=== PATIENT | female | born 1955 | race Hispanic/Latino ===

== ENCOUNTER 2018-03-24 14:34 | Emergency (ER) | payer SELFPAY ==
[2018-03-24 15:05] LABS: #Basophils 0.1 thou/uL (0.0-0.2); #Lymphocytes 2.4 thou/uL (1.20-3.40); #Monocytes 1.3 thou/uL (0.11-0.59); #Neutrophils 9.1 thou/uL (1.40-6.50); %Basophils 0.6 % (0.0-1.0); %Eosinophils 0.2 % (0.0-10.0); %Lymphocytes 18.5 % (21.0-51.0); %Monocytes 10.1 % (0.0-10.0); %Neutrophils 70.7 % (42.0-75.0); Hemoglobin 14.8 g/dL (12.0-16.0); Mean Corpuscular HGB CONC 35.7 g/dL (32.0-36.0); Mean Corpuscular Volume 89.5 fL (78.0-98.0); Mean Platelet Volume 6.4 fL (7.4-10.4); Platelet Count 268 thou/uL (130-400); RBC Distribution Width 12.1 % (11.5-14.5); Red Blood Cell (RBC) Count 4.64 mill/uL (4.20-5.40); White Blood Cell (WBC) Count 12.9 thou/uL (4.8-10.8)
[2018-03-24 15:19] LABS: ALT (SGPT) 51 U/L (8-55); AST (SGOT) 41 U/L (5-34); Albumin 4.2 g/dL (3.4-4.8); Alkaline Phosphatase 102 U/L (40-150); Anion Gap 15 mmol/L (10-20); BUN (Urea Nitrogen) 24 mg/dL (9.8-20.1); Bilirubin, Total 0.5 mg/dL (0.2-1.2); CK (CPK) 294 U/L (29-168); Calc. Creatinine Clearance 0 mL/min (70-130); Calcium 9.7 mg/dL (7.8-10.44); Carbon Dioxide 27 mmol/L (23-31); Chloride 95 mmol/L (98-107); Estimated GFR-MDRD 73; Globulin 4.1 g/dL (2.4-3.5); Glucose 107 mg/dL (80-115); Potassium 3.2 mmol/L (3.5-5.1); Protein, Total 8.3 g/dL (6.0-8.3); Sodium 134 mmol/L (136-145)
--- NOTE | 2018-03-24 15:20 | RAD ---
CHEST 1 VIEW: Date: 03/24/18 HISTORY: Shortness of breath. COMPARISON: None. FINDINGS: Heart size mildly enlarged. No focal confluent air space consolidation, pneumothorax, or effusion. No acute osseous abnormality. IMPRESSION: No acute intrathoracic abnormality. POS: [facility]
[2018-03-24 15:23] LABS: CKMB 5.3 ng/mL (0-6.6); Troponin I Less than 0.010 ng/mL (< 0.028)
[2018-03-24] MEDS ORDERED: Lorazepam 2 MG/ML VIAL ONE (16:48)
[2018-03-24] MEDS ORDERED: ISOVUE-370 76%-LOCM 1 ML ONE (16:53)
--- NOTE | 2018-03-24 17:44 | CT ---
CT ANGIOGRAM CHEST WITH 3D RENDERING: History: 62-year-old female with dyspnea, obesity and tachycardia. FINDINGS: There is some very minute linear stranding in the left lung base, nonspecific, possibly some mild sub segmental atelectasis versus chronic change. No overt acute pulmonary parenchymal process. No CT evidence for acute pulmonary embolism. No pleural effusion or pericardial effusion. Visualized upper abdomen is unremarkable. Possible tiny hiatal her petty. IMPRESSION: No CT evidence for acute pulmonary embolism. No evidence for other significant acute process. POS: [facility]
== END 2018-03-24 17:13 | disposition home or self-care (01) ==
LOC: ERS 14:34
DX: F41.9 Anxiety disorder, unspecified (principal); I10 Essential (primary) hypertension; Z79.899 Other long term (current) drug therapy
CPT/HCPCS: 36415; 71045; 71275; 80053; 82553; 83880; 84484; 85025; 93005; 96374; J2060

== ENCOUNTER 2018-05-14 01:30 | Emergency (ER) | payer SELFPAY ==
[2018-05-14 02:01] LABS: Bilirubin Negative (Negative); Blood, Urine Trace (Negative); Clarity CLEAR (Clear); Glucose, Urine (Dipstick) Negative (Negative); Leukocyte Negative (Negative); Nitrite Negative (Negative); Protein, Urine (Dipstick) Trace mg/dL (Neg-Trace); Specific Gravity, Urine 1.035 (1.002-1.036); Urobilinogen 0.2 mg/dL (0.2-1.0); pH, Urine 6.5 (5.0-9.0)
[2018-05-14 02:03] LABS: Bacteria/HPF None Seen HPF (None Seen); Hyaline Casts/LPF 4-6 HYALINE CAST LPF (0-3 Hyaline); Pathc Cast-AUWi Flag 1.59 (0-2.49); WBC/HPF 0-3 HPF (0-3)
[2018-05-14 02:04] LABS: #Eosinphils 0.1 thou/uL (0.0-0.7); #Lymphocytes 2.7 thou/uL (1.20-3.40); #Monocytes 0.5 thou/uL (0.11-0.59); #Neutrophils 4.2 thou/uL (1.40-6.50); %Basophils 0.6 % (0.0-1.0); %Eosinophils 1.3 % (0.0-10.0); %Lymphocytes 35.9 % (21.0-51.0); %Monocytes 6.9 % (0.0-10.0); %Neutrophils 55.3 % (42.0-75.0); Hemoglobin 13.3 g/dL (12.0-16.0); Mean Corpuscular HGB CONC 34.5 g/dL (32.0-36.0); Mean Corpuscular Hemoglobin 30.3 pg (27.0-31.0); Mean Platelet Volume 6.3 fL (7.4-10.4); Platelet Count 294 thou/uL (130-400); RBC Distribution Width 12.2 % (11.5-14.5); Red Blood Cell (RBC) Count 4.39 mill/uL (4.20-5.40); White Blood Cell (WBC) Count 7.6 thou/uL (4.8-10.8)
[2018-05-14 02:33] LABS: ALT (SGPT) 28 U/L (8-55); AST (SGOT) 25 U/L (5-34); Albumin 3.9 g/dL (3.4-4.8); Alkaline Phosphatase 96 U/L (40-150); Anion Gap 16 mmol/L (10-20); BUN (Urea Nitrogen) 18 mg/dL (9.8-20.1); Bilirubin, Total 0.3 mg/dL (0.2-1.2); Calc. Creatinine Clearance 0 mL/min (70-130); Calcium 9.5 mg/dL (7.8-10.44); Carbon Dioxide 29 mmol/L (23-31); Chloride 98 mmol/L (98-107); Estimated GFR-MDRD 69; Glucose 130 mg/dL (80-115); Lipase 21 U/L (8-78); Potassium 3.7 mmol/L (3.5-5.1); Protein, Total 7.9 g/dL (6.0-8.3); Sodium 139 mmol/L (136-145)
[2018-05-14] MEDS ORDERED: Morphine 4 MG/ML VIAL ONE (03:53)
--- NOTE | 2018-05-14 09:52 | CT ---
PRELIMINARY REPORT/[facility]/EMERGENTY AFTER-HOURS PROCEDURE CT Abdomen and Pelvis Without Contrast EXAM DATE/TIME: 05/14/2018 3:43 AM CLINICAL HISTORY: 62 years old, female; Pain; Abdominal pain; Flank; Left; Prior surgery; Patient HX: Er5; 62 yo f pres ents to ed with rash. PT reports sharp left flank pain for the past 1.5 weeks, PT hasn't seen a docto r for this issue. PT reports she noticed a rash on her chest and to her left flank region. PT reports she took aleve at home but it hasn't helped TECHNIQUE: Axial computed tomography images of the abdomen and pelvis without contrast. Coronal reformatted images were created and reviewed. COMPARISON: No relevant prior studies available. FINDINGS: Lower thorax: No acute findings. ABDOMEN: Liver: Suspected fatty infiltration of the liver. Gallbladder and bile ducts: Gallbladder appears contracted, limits evaluation. Pancreas: Normal. No ductal dilation. Spleen: Normal. No splenomegaly. Adrenals: Normal. No mass. Kidneys and ureters: No evidence of stones within the kidneys, ureters or bladder. No evidence of obs tructive uropathy or obstructive nephropathy. Stomach and bowel: Normal. No obstruction. No mucosal thickening. Appendix: Appendix - not identified, several bowel loops in lower abdomen. No pericecal inflammatory changes. PELVIS: Bladder: Unremarkable as visualized. Reproductive: Atrophic uterus. ABDOMEN and PELVIS: Intraperitoneal space: Normal. No free air. No significant fluid collection. Bones/joints: Chronic degenerative changes of the lumbar spine. Soft tissues: Ovoid 8 cm fat containing right infraumbilical hernia within anterior pelvic wall. Vasculature: Chronic atherosclerotic calcification of the vasculature. Lymph nodes: Normal. No enlarged lymph nodes. IMPRESSION: 1. No evidence of stones within the kidneys, ureters or bladder. No evidence of obstructive uropathy or obstructive nephropathy. 2. Suspected fatty infiltration of the liver. Thank you for allowing us to participate in the care of your patient. Dictated and Authenticated by: Gino Lancaster MD 05/14/2018 5:08 AM Central Time ([place] & [place]) FINAL REPORT EMERGENT AFTER HOURS NONCONTRAST CT ABDOMEN AND PELVIS: DATE: 05/14/2018. HISTORY: The patient reports sharp left flank pain for the past 1-1/2 weeks. IMPRESSION: 1. Approximately 11 mm exophytic increased density lesion at the inferior pole right kidney which ca nnot be further characterized on this nonenhanced exam and due to small size but may represent a hype rdense Bosniak type II renal cystic lesion. 2. No renal or ureteral calculi are seen bilaterally. 3. Fatty infiltration of the liver with areas of focal fatty sparing at the posterior left hepatic l obe. 4. Scattered colonic diverticula. 5. Fat-containing umbilical hernia. 6. Vascular calcifications. 7. Findings are in agreement with the preliminary report by [facility]. POS: [facility]
== END 2018-05-14 06:15 | disposition home or self-care (01) ==
LOC: ERS 01:30
DX: B02.9 Zoster without complications (principal); E78.5 Hyperlipidemia, unspecified; I10 Essential (primary) hypertension; F32.9 Major depressive disorder, single episode, unspecified
CPT/HCPCS: 36415; 74176; 80053; 81003; 81015; 83690; 85025; 96372; J2270

== ENCOUNTER 2018-12-03 13:00 | Outpatient (CLI) | payer MEDICARE, MEDICAID ==
--- NOTE | 2018-12-03 13:27 | RAD ---
RADIOGRAPH CHEST 2 VIEWS: 12/03/18 HISTORY: 63-year-old female with dyspnea. FINDINGS: The thoracic aorta is tortuous and ectatic. There is no evidence of air space density, pneumothorax, or pulmonary edema. There is no cardiomegaly or pleural effusion. IMPRESSION: 1) No acute cardiopulmonary findings. 2) Ectasia of thoracic aorta. jn [] POS: [facility]
== END 2018-12-03 13:01 | disposition home or self-care (01) ==
LOC: RAD 13:00
PROVIDERS: ATTEND Internal Medicine Pulmonary Disease
DX: R06.00 Dyspnea, unspecified (principal); I77.810 Thoracic aortic ectasia
CPT/HCPCS: 71046

== ENCOUNTER 2018-12-20 19:30 | Outpatient (CLI) | payer MEDICARE, MEDICAID | END 2018-12-20 19:31 | disposition home or self-care (01) | LOC: SLEEPLAB 19:30 | PROVIDERS: ATTEND Internal Medicine Pulmonary Disease | DX: G47.33 Obstructive sleep apnea (adult) (pediatric) (principal); R53.83 Other fatigue; K21.9 Gastro-esophageal reflux disease without esophagitis; E66.9 Obesity, unspecified; R06.83 Snoring | CPT/HCPCS: 95811 ==

== ENCOUNTER 2019-01-23 12:00 | Outpatient (CLI) | payer MEDICARE, MEDICAID ==
--- NOTE | 2019-01-24 16:51 | MMO ---
Bilateral MAMMO Bilat Screen [facility]. CLINICAL HISTORY: Patient is 63 years old and is seen for screening. The patient has no family history of breast cancer. The patient has no personal history of cancer. VIEWS: The views performed were: bilateral craniocaudal with tomosynthesis and bilateral mediolateral oblique with tomosynthesis. FILMS COMPARED: The present examination has been compared to a prior imaging study performed at [place], [place] on 08/29/2017. This study has been interpreted with the assistance of computer-aided detection. MAMMOGRAM FINDINGS: There are scattered fibroglandular densities. There are stable benign appearing calcifications seen in the left breast. There are no suspicious masses, calcifications or areas of architectural distortion. There are no suspicious masses, suspicious calcifications, or new areas of architectural distortion. IMPRESSION: THERE IS NO MAMMOGRAPHIC EVIDENCE OF MALIGNANCY. A ROUTINE FOLLOW-UP MAMMOGRAM IN 1 YEAR IS RECOMMENDED. THE RESULTS OF THIS EXAM WERE SENT TO THE PATIENT. ACR BI-RADS Category 2 - Benign finding MAMMOGRAPHY NOTE: 1. A negative mammogram report should not delay a biopsy if a dominant of clinically suspicious mass is present. 2. Approximately 10% to 15% of breast cancers are not detected by mammography. 3. Adenosis and dense breasts may obscure an underlying neoplasm. Reported by: RAHEL SHEEHAN MD Electonically Signed: [id number]
== END 2019-01-23 12:01 | disposition home or self-care (01) ==
LOC: BICMAMMO 12:00
PROVIDERS: ATTEND Family Medicine
DX: Z12.31 Encounter for screening mammogram for malignant neoplasm of breast (principal)
CPT/HCPCS: 77063; 77067

== ENCOUNTER 2019-02-04 15:02 | Emergency (ER) | payer MEDICARE, MEDICAID ==
--- NOTE | 2019-02-04 16:14 | RAD ---
3 views of the right shoulder: 02/04/2019 COMPARISON: None HISTORY: Right arm pain, right shoulder pain, radiculopathy FINDINGS: There is joint space narrowing involving the acromioclavicular interspace. There is no wide evelio of the coracoclavicular interspace. No acute fracture or evidence of dislocation is seen. Incompletely imaged cervical spine demonstrates facet hypertrophy on the right at C4-5 and C5-6. IMPRESSION: Degenerative changes as detailed above.
== END 2019-02-04 16:48 | disposition home or self-care (01) ==
LOC: ERS 15:02
DX: M25.511 Pain in right shoulder (principal); E78.5 Hyperlipidemia, unspecified; E78.00 Pure hypercholesterolemia, unspecified; I10 Essential (primary) hypertension; F32.9 Major depressive disorder, single episode, unspecified; Z79.891 Long term (current) use of opiate analgesic; Z79.899 Other long term (current) drug therapy
CPT/HCPCS: 93005

== ENCOUNTER 2020-03-22 12:28 | Outpatient (CLI) | payer MEDICARE, MEDICAID ==
--- NOTE | 2020-03-22 14:10 | MMO ---
Bilateral MAMMO Bilat Screen [facility]. CLINICAL HISTORY: Patient is 64 years old and is seen for screening. The patient has no family history of breast cancer. The patient has no personal history of cancer. VIEWS: The views performed were: bilateral mediolateral oblique with tomosynthesis; bilateral craniocaudal with tomosynthesis; bilateral mediolateral oblique; and left craniocaudal. FILMS COMPARED: The present examination has been compared to prior imaging studies performed at [facility] on 01/23/2019, and at [place], [place] on 08/29/2017. This study has been interpreted with the assistance of computer-aided detection. MAMMOGRAM FINDINGS: There are scattered fibroglandular densities. There is a stable nodule seen in the upper-outer region of the left breast. There are no suspicious masses, suspicious calcifications, or new areas of architectural distortion. IMPRESSION: THERE IS NO MAMMOGRAPHIC EVIDENCE OF MALIGNANCY. A ROUTINE FOLLOW-UP MAMMOGRAM IN 1 YEAR IS RECOMMENDED. THE RESULTS OF THIS EXAM WERE SENT TO THE PATIENT. ACR BI-RADS Category 2 - Benign finding MAMMOGRAPHY NOTE: 1. A negative mammogram report should not delay a biopsy if a dominant of clinically suspicious mass is present. 2. Approximately 10% to 15% of breast cancers are not detected by mammography. 3. Adenosis and dense breasts may obscure an underlying neoplasm. Reported by: ROMAN SALVADOR MD Electonically Signed: [id number]
== END 2020-03-22 12:29 | disposition home or self-care (01) ==
LOC: BICMAMMO 12:28
PROVIDERS: ATTEND Family Medicine
DX: Z12.31 Encounter for screening mammogram for malignant neoplasm of breast (principal)
CPT/HCPCS: 77063; 77067

== ENCOUNTER 2020-06-07 08:53 | Emergency (ER) | payer MEDICARE, MEDICAID ==
[2020-06-07] MEDS ORDERED: Ondansetron PF 4 MG/2 ML Vial ONE (09:20)
[2020-06-07] MEDS ORDERED: Ketorolac Tromethamine 30 MG/ML VIAL ONE (09:20)
[2020-06-07] MEDS ORDERED: Acetaminophen 500 MG TAB ONE (09:20)
--- NOTE | 2020-06-07 09:58 | RAD ---
CHEST 1 VIEW: Date: 06/07/2020 HISTORY: Weakness and cough for 1 week. COMPARISON: 12/03/2018. FINDINGS: Patchy bilateral interstitial, alveolar, and ground-glass opacity changes, primarily in the mid lung zone, somewhat more peripherally oriented. This appearance certainly is consistent with that of bilat eral COVID pneumonia. IMPRESSION: Evidence for bilateral COVID pneumonia. POS: [facility]
[2020-06-07 10:18] LABS: #Basophils 0.1 thou/uL (0.0-0.2); #Lymphocytes 1.4 thou/uL (1.20-3.40); #Monocytes 0.3 thou/uL (0.11-0.59); #Neutrophils 3.5 thou/uL (1.40-6.50); %Basophils 1.3 % (0.0-1.0); %Eosinophils 0.1 % (0.0-10.0); %Monocytes 6.4 % (0.0-10.0); %Neutrophils 66.1 % (42.0-75.0); Hemoglobin 14.6 g/dL (12.0-16.0); Mean Corpuscular HGB CONC 32.1 g/dL (32.0-36.0); Mean Corpuscular Volume 87.1 fL (78.0-98.0); Platelet Count 177 thou/uL (130-400); RBC Distribution Width 12.5 % (11.5-14.5); Red Blood Cell (RBC) Count 5.22 mill/uL (4.20-5.40); White Blood Cell (WBC) Count 5.3 thou/uL (4.8-10.8)
[2020-06-07 10:27] LABS: ALT (SGPT) 28 U/L (8-55); AST (SGOT) 49 U/L (5-34); Albumin 3.9 g/dL (3.4-4.8); Alkaline Phosphatase 67 U/L (40-110); Anion Gap 16 mmol/L (10-20); BUN (Urea Nitrogen) 32 mg/dL (9.8-20.1); Bilirubin, Total 0.5 mg/dL (0.2-1.2); Calc. Creatinine Clearance 0 mL/min (70-130); Calcium 8.5 mg/dL (7.8-10.44); Carbon Dioxide 29 mmol/L (23-31); Chloride 98 mmol/L (98-107); Glucose 106 mg/dL (80-115); Potassium 3.3 mmol/L (3.5-5.1); Protein, Total 7.9 g/dL (5.8-8.1); Sodium 140 mmol/L (136-145)
[2020-06-07 11:41] LABS: Bilirubin Negative (Negative); Blood, Urine Negative (Negative); Clarity Turbid (Clear); Glucose, Urine (Dipstick) Normal (Negative); Ketone, Urine Negative (Negative); Leukocyte Negative Leu/uL (Negative); Nitrite Negative (Negative); Protein, Urine (Dipstick) 70 mg/dL (Neg-Trace); RBC/HPF 0-3 HPF (0-3); Specific Gravity, Urine 1.028 (1.002-1.036); Urobilinogen Normal mg/dL (Less than 2); pH, Urine 5.5 (5.0-9.0)
[2020-06-07 11:42] LABS: Bacteria/HPF 1+ HPF (None Seen)
[2020-06-07 22:20] LABS: SARS-CoV-2 PCR by NAA DETECTED (NotDetected)
== END 2020-06-07 13:00 | disposition home or self-care (01) ==
LOC: ERS 08:53
DX: U07.1 COVID-19 (principal); J12.82 Pneumonia due to coronavirus disease 2019; E86.0 Dehydration; E78.5 Hyperlipidemia, unspecified; E78.00 Pure hypercholesterolemia, unspecified; I10 Essential (primary) hypertension; Z79.899 Other long term (current) drug therapy
CPT/HCPCS: 71045; 80053; 81003; 81015; 84484; 85025; 87635; 93005; J1885; J2405; U0003; U0005

== ENCOUNTER 2020-06-09 11:07 | Inpatient (IN) | payer MEDICARE, MEDICAID ==
[~2020-06-09 11:07] MED LIST: Iopamidol-370 76% 500 ML 1 ML ONE
[2020-06-09 11:51] LABS: #Lymphocytes 0.8 thou/uL (1.20-3.40); #Monocytes 0.3 thou/uL (0.11-0.59); #Neutrophils 3.9 thou/uL (1.40-6.50); %Basophils 0.8 % (0.0-1.0); %Lymphocytes 16.7 % (21.0-51.0); %Monocytes 5.4 % (0.0-10.0); Hemoglobin 13.9 g/dL (12.0-16.0); Mean Corpuscular HGB CONC 33.6 g/dL (32.0-36.0); Mean Corpuscular Hemoglobin 29.3 pg (27.0-31.0); Mean Corpuscular Volume 87.3 fL (78.0-98.0); Mean Platelet Volume 7.2 fL (7.4-10.4); Platelet Count 162 thou/uL (130-400); RBC Distribution Width 12.5 % (11.5-14.5); Red Blood Cell (RBC) Count 4.75 mill/uL (4.20-5.40)
[2020-06-09] MEDS ORDERED: Azithromycin 500 MG VIAL ONE (11:52)
[2020-06-09] MEDS ORDERED: Dexamethasone 10 MG/ML VIAL ONE (11:52)
[2020-06-09] MEDS ORDERED: cefTRIAXone\\ROCEPHIN 1 GM VIAL ONE (11:52)
[2020-06-09] MEDS ORDERED: Albuterol 200 PUFF (6.7GM INHALER) ONE (11:52)
[2020-06-09] MEDS ORDERED: Ketorolac Tromethamine 30 MG/ML VIAL ONE (11:57)
--- NOTE | 2020-06-09 12:28 | RAD ---
PORTABLE CHEST: Date: 06/09/2020 PROVIDED CLINICAL HISTORY: Pneumonia. FINDINGS: Comparison with 06/07/2020. Evaluation is limited by patient body habitus. The cardiac silhouette remains enlarged. Extensive bilateral air space and interstitial opacities are redemonstrated, appearing worsened in the right upper lung zone. Left pleural fluid cannot be exclud ed. There is no evidence for pneumothorax. IMPRESSION: Worsened air space disease. POS: [facility]
[2020-06-09 12:37] LABS: Albumin 3.4 g/dL (3.4-4.8)
[2020-06-09 12:39] LABS: Calcium 8.1 mg/dL (7.8-10.44); Chloride 98 mmol/L (98-107); Potassium 3.6 mmol/L (3.5-5.1); Sodium 136 mmol/L (136-145)
[2020-06-09 12:40] LABS: Globulin 4.2 g/dL (2.4-3.5); Glucose 101 mg/dL (80-115); Protein, Total 7.6 g/dL (5.8-8.1)
[2020-06-09 12:41] LABS: Anion Gap 16 mmol/L (10-20); Carbon Dioxide 26 mmol/L (23-31)
[2020-06-09 12:42] LABS: Bilirubin, Total 0.5 mg/dL (0.2-1.2)
[2020-06-09 12:43] LABS: Alkaline Phosphatase 59 U/L (40-110); Calc. Creatinine Clearance 0 mL/min (70-130)
[2020-06-09 12:44] LABS: BUN (Urea Nitrogen) 24 mg/dL (9.8-20.1)
[2020-06-09 12:45] LABS: AST (SGOT) 49 U/L (5-34)
[2020-06-09 12:46] LABS: ALT (SGPT) 26 U/L (8-55)
[2020-06-09 13:08] LABS: PTT 29.6 sec (22.9-36.1); Prothrombin Time 13.7 sec (12.0-14.7)
--- NOTE | 2020-06-09 13:12 | CT ---
Exam: CT angiogram of the chest HISTORY: Dyspnea. COMPARISON: 03/24/2018 TECHNIQUE: CT angiogram of the chest is performed in the axial plane. Three-dimensional reformatted i mages are submitted for interpretation FINDINGS: Mediastinum: No mass, lymphadenopathy or hematoma. HEART: Normal size. No significant pericardial fluid. Aorta: No aneurysm or dissection Upper solid abdominal viscera: No abnormality enhancement. Trachea and central bronchi: Patent Pleural spaces: No effusion Lung parenchyma: Predominantly peripheral groundglass opacities, suspicious for COVID 19 pneumonia Pneumothorax: None Osseous structures: No lytic or blastic lesions Pulmonary arteries:Limited evaluation pulmonary arterial system due to timing of contrast bolus. Adeq uate contrast opacification of central pulmonary arteries. No filling defect. Evaluation the remainder the pulmonary arterial system is limited. IMPRESSION: 1. Limited evaluation for metal system due to timing of contrast bolus. No obvious central pulmonary embolism. 2. Peripheral groundglass opacities, consistent with COVID 19 pneumonia. Correlate for patient's CODE STATUS
[2020-06-09] MEDS ORDERED: Ondansetron ODT 4 MG TAB PO PRN (14:14)
[2020-06-09] MEDS ORDERED: Calcium Carbonate 500 MG ChewTAB PO PRN (14:14)
[2020-06-09] MEDS ORDERED: Acetaminophen 650 MG Suppository PR PRN (14:14)
[2020-06-09] MEDS ORDERED: Acetaminophen 325 MG TAB PO PRN (14:14)
[2020-06-09] MEDS ORDERED: Ondansetron PF 4 MG/2 ML Vial IVP PRN (14:14)
--- NOTE | 2020-06-09 14:22 | PDOC.HHP ---
Hospitalist HPI dyspnea History of Present Illness: Case of an 64y/o female with a pmhx of hld htn who uses 02 at home 2L, patient does not know why she is on home 02, she denies any heart or lung disease, she is morbidly obese, could be related to obesity hypoventilation syndrome who come to hospital due to complaining of worsening shortness of breath and extreme fatigue. Patient was seen in this ER 2 days ago with similar symptoms. She was tested for Covid at that time. Those results are positive. Patient symptoms started initially about 10 days ago. She did see her primary care provider who placed her on a Medrol Dosepak. She completed that as prescribed. She refers some diarrhea denies abdominal pain. EMS reported that the patient was febrile at 102 F. She did receive a gram of Tylenol prior to arrival in the ER. Oxygen saturation was 86% on room air for EMS. She did improve to 90% on 3 L per nasal cannula. Patient says she has been too weak to get up and do anything for herself. She denies chest pain or palpitations. Allergies/Adverse Reactions: Allergy/AdvReac Type Severity Reaction Status Date / Time No Known Allergies Allergy Unverified 06/09/20 14:18 Home Medications: Medication Instructions Recorded Confirmed Type Atorvastatin Calcium [Lipitor] 20 mg PO DAILY 06/09/20 06/09/20 History Celecoxib [Celebrex] 200 mg PO BID 06/09/20 06/09/20 History Ergocalciferol (Vitamin D2) 50,000 unit PO ASDIR 06/09/20 06/09/20 History [Vitamin D2] Fluticasone/Vilanterol [Breo 1 each IH DAILY 06/09/20 06/09/20 History Ellipta 200-25 Mcg INH] Hydrochlorothiazide 25 mg PO DAILY 06/09/20 06/09/20 History Ondansetron [Ondansetron ODT] 4 mg PO Q6HR PRN 06/09/20 06/09/20 History methylPREDNISolone [Medrol] 4 mg PO ASDIR 06/09/20 06/09/20 History Past History: PMHx: as above PSHx: none FHx: non contributory Social: denies alcohol tabacco or any other drug Hospitalist HPI ROS All other systems reviewed; all pertinent +/- noted in HPI/Subj Hospitalist Exam General Appearance: ill appearing General - other findings: obese Eye: PERRL, anicteric sclera ENT: normocephalic atraumatic, no oropharyngeal lesions Neck: supple, symmetric, no JVD Heart: RRR, no murmur, no gallops Respiratory: CTAB, no wheezes, no rales Gastrointestinal: soft, non-tender, non-distended Extremities: no cyanosis, no clubbing, no edema Skin: normal turgor, no lesions, no rashes Neurological: cranial nerve grossly intact, normal sensation to touch, no weakness Musculoskeletal: normal tone, normal strength, no muscle wasting Psychiatric: normal affect, normal behavior, A&O x 3 Hospitalist Results Result Diagrams: 06/09/20 11:35 06/09/20 11:35 Lab results: Laboratory Last Values WBC 5.0 thou/uL (4.8-10.8) 06/09/20 11:35 RBC 4.75 mill/uL (4.20-5.40) 06/09/20 11:35 Hgb 13.9 g/dL (12.0-16.0) 06/09/20 11:35 Hct 41.5 % (36.0-47.0) 06/09/20 11:35 MCV 87.3 fL (78.0-98.0) 06/09/20 11:35 MCH 29.3 pg (27.0-31.0) 06/09/20 11:35 MCHC 33.6 g/dL (32.0-36.0) 06/09/20 11:35 RDW 12.5 % (11.5-14.5) 06/09/20 11:35 Plt Count 162 thou/uL (130-400) 06/09/20 11:35 MPV 7.2 fL (7.4-10.4) L 06/09/20 11:35 Neutrophils % 77.0 % (42.0-75.0) H 06/09/20 11:35 Lymphocytes % 16.7 % (21.0-51.0) L 06/09/20 11:35 Monocytes % 5.4 % (0.0-10.0) 06/09/20 11:35 Eosinophils % 0.0 % (0.0-10.0) 06/09/20 11:35 Basophils % 0.8 % (0.0-1.0) 06/09/20 11:35 Neutrophils # 3.9 thou/uL (1.40-6.50) 06/09/20 11:35 Lymphocytes # 0.8 thou/uL (1.20-3.40) L 06/09/20 11:35 Monocytes # 0.3 thou/uL (0.11-0.59) 06/09/20 11:35 Eosinophils # 0.0 thou/uL (0.0-0.7) 06/09/20 11:35 Basophils # 0.0 thou/uL (0.0-0.2) 06/09/20 11:35 PT 13.7 sec (12.0-14.7) 06/09/20 12:49 INR 1.0 06/09/20 12:49 APTT 29.6 sec (22.9-36.1) 06/09/20 12:49 Sodium 136 mmol/L (136-145) 06/09/20 11:35 Potassium 3.6 mmol/L (3.5-5.1) 06/09/20 11:35 Chloride 98 mmol/L (98-107) 06/09/20 11:35 Carbon Dioxide 26 mmol/L (23-31) 06/09/20 11:35 Anion Gap 16 mmol/L (10-20) 06/09/20 11:35 BUN 24 mg/dL (9.8-20.1) H 06/09/20 11:35 Creatinine 0.78 mg/dL (0.6-1.1) 06/09/20 11:35 Estimated GFR (MDRD) 74 06/09/20 11:35 Glucose 101 mg/dL (80-115) 06/09/20 11:35 Lactic Acid 1.4 mmol/L (0.5-2.2) 06/09/20 11:35 Calcium 8.1 mg/dL (7.8-10.44) 06/09/20 11:35 Total Bilirubin 0.5 mg/dL (0.2-1.2) 06/09/20 11:35 AST 49 U/L (5-34) H 06/09/20 11:35 ALT 26 U/L (8-55) 06/09/20 11:35 Alkaline Phosphatase 59 U/L (40-110) 06/09/20 11:35 Troponin I 0.020 ng/mL (< 0.028) 06/09/20 11:35 B-Natriuretic Peptide 15.6 pg/mL (0-100) 06/09/20 12:49 Serum Total Protein 7.6 g/dL (5.8-8.1) 06/09/20 11:35 Albumin 3.4 g/dL (3.4-4.8) 06/09/20 11:35 Globulin 4.2 g/dL (2.4-3.5) H 06/09/20 11:35 Albumin/Globulin Ratio 0.8 g/dL (1.2-2.2) L 06/09/20 11:35 Hospitalist H&P A/P (1) Pneumonia due to COVID-19 virus Code(s): U07.1 - COVID-19; J12.82 - PNEUMONIA DUE TO CORONAVIRUS DISEASE 2019 Status: Acute (2) Respiratory failure with hypoxia Code(s): J96.91 - RESPIRATORY FAILURE, UNSPECIFIED WITH HYPOXIA Status: Acute (3) HTN (hypertension) Code(s): I10 - ESSENTIAL (PRIMARY) HYPERTENSION Status: Acute (4) HLD (hyperlipidemia) Code(s): E78.5 - HYPERLIPIDEMIA, UNSPECIFIED Status: Acute Plan: Case of an 64y/o female with the stated pmhx who present with worsening covid 19 symptoms covid 19 pneumonia - positive test - cta consistent with covid 19 pneumonia - will start decadron ivd - zinc + vit c d - ivfs for 24 hrs - isolation protocol resp failure w hypoxia - secondary to above - o2 supplementation - wean as tolerated htn - will hold for now, borderline hypotensive - continue home meds when more stable hld - continue home meds
[2020-06-09 15:34] VITALS: BMI 51.7
[2020-06-09] MEDS: Sodium Chloride 0.9% 1,000 ML IV SCH (15:46)
[2020-06-09] MEDS: Guaifenesin DM 100-10/5 ML UDCUP PO PRN (20:43)
[2020-06-10] MEDS: Sodium Chloride 0.9% 1,000 ML IV SCH (05:46)
[2020-06-10 07:19] LABS: ALT (SGPT) 23 U/L (8-55); AST (SGOT) 36 U/L (5-34); Albumin 3.4 g/dL (3.4-4.8); Alkaline Phosphatase 55 U/L (40-110); Anion Gap 14 mmol/L (10-20); BUN (Urea Nitrogen) 21 mg/dL (9.8-20.1); Bilirubin, Total 0.4 mg/dL (0.2-1.2); CRP (Inflammatory) 6.44 mg/dL (= or < 0.5); Calc. Creatinine Clearance 123 mL/min (70-130); Calcium 8.1 mg/dL (7.8-10.44); Carbon Dioxide 30 mmol/L (23-31); Chloride 103 mmol/L (98-107); Globulin 3.8 g/dL (2.4-3.5); Glucose 130 mg/dL (80-115); Potassium 3.5 mmol/L (3.5-5.1); Protein, Total 7.2 g/dL (5.8-8.1); Sodium 143 mmol/L (136-145)
[2020-06-10 08:17] LABS: Band 30 % (5-11); Hemoglobin 13.5 g/dL (12.0-16.0); Lymphocytes 12 % (21-51); MDiff Complete? YES; Mean Corpuscular HGB CONC 33.4 g/dL (32.0-36.0); Mean Corpuscular Volume 89.9 fL (78.0-98.0); Mean Platelet Volume 7.4 fL (7.4-10.4); Monocytes 6 % (0-10); Neutrophil 50 % (42-75); Platelet Count 165 thou/uL (130-400); RBC Distribution Width 12.5 % (11.5-14.5); RBC Morphology Normal; Reactive Lymphocytes 2 % (0-10); White Blood Cell (WBC) Count 3.7 thou/uL (4.8-10.8)
[2020-06-10] MEDS: Enoxaparin Sodium 40 MG/0.4 ML SYRINGE SC SCH (09:31)
[2020-06-10] MEDS: Ascorbic Acid 500 mg Chewable Tablet PO SCH (09:31)
[2020-06-10] MEDS: Cholecalciferol (Vitamin D3) 400 UNITS TAB PO SCH (09:31)
[2020-06-10] MEDS: Zinc Sulfate 220 MG CAP PO SCH (09:31)
[2020-06-10] MEDS: Dexamethasone 6 MG in Sodium Chloride 0.9% 50 ML IVPB SCH (11:13)
[2020-06-10] MEDS: guaiFENesin/Codeine 200 mg/20 mg 10 ml Cup PO PRN ×2 (11:14→18:16)
--- NOTE | 2020-06-10 15:06 | PDOC.HOSPP ---
- Subjective Encounter Date: 06/10/20 Encounter Time: 15:04 Subjective: Complain of generalized weakness and shortness of breath - Objective Vital Signs & Weight: Vital Signs (12 hours) Temp Pulse Resp BP BP Pulse Ox 06/10/20 11:15 98.4 F 84 24 H 117/73 98 06/10/20 09:45 98 06/10/20 08:00 98.9 F 73 20 115/72 93 L 06/10/20 07:49 98.0 F 70 20 99/68 94 L 06/10/20 05:21 97.9 F 69 20 104/69 94 L Weight Weight 239 lb I&O: 06/09/20 06/10/20 06/11/20 06:59 06:59 06:59 Intake Total 700 Balance 700 Result Diagrams: 06/10/20 06:33 06/10/20 06:33 Hospitalist ROS - Review of Systems Constitutional: denies: fever, chills, sweats, weakness, malaise, other Eyes: denies: pain, vision change, conjunctivae inflammation, eyelid inflammation, redness, other ENT: denies: ear pain, ear discharge, nose pain, nose discharge, nose congestion, mouth pain, mouth swelling, throat pain, throat swelling, other Respiratory: denies: cough, dry, shortness of breath, hemoptysis, SOB with excertion, pleuritic pain, sputum, wheezing, other Cardiovascular: denies: chest pain, palpitations, orthopnea, paroxysmal noc. dys pnea, edema, light headedness, other Gastrointestinal: denies: nausea, vomiting, abdominal pain, diarrhea, constipation, melena, hematochezia, other Musculoskeletal: denies: neck pain, shoulder pain, arm pain, back pain, hand pain, leg pain, foot pain, other Neurological: denies: weakness, numbness, incoordination, change in speech, confusion, seizures, other - Medication Medications: Active Medications Generic Name Dose Route Start Last Admin Trade Name Freq PRN Reason Stop Dose Admin Ascorbic Acid 1,000 mg 06/10/20 09:00 06/10/20 09:31 Ascorbic Acid 500 Mg Chewable Tablet PO 1,000 mg DAILY GINNY Administration Cholecalciferol 400 units 06/10/20 09:00 06/10/20 09:31 Cholecalciferol (Vitamin D3) 400 Units Tab PO 400 units DAILY GINNY Administration Enoxaparin Sodium 40 mg 06/10/20 09:00 06/10/20 09:31 Enoxaparin Sodium 40 Mg/0.4 Ml Syringe SC 40 mg 0900 GINNY Administration Guaifenesin/Codeine Phosphate 10 ml 06/10/20 10:34 06/10/20 11:14 Guaifenesin/Codeine 200 Mg/20 Mg 10 Ml Cup PO 10 ml Q6H PRN Administration Cough Guaifenesin/Dextromethorphan 15 ml 06/09/20 14:14 06/09/20 20:43 Guaifenesin Dm 100-10/5 Ml Udcup PO 15 ml Q4H PRN Administration Cough Dexamethasone 6 mg/ Sodium 50.6 mls @ 100 mls/hr 06/10/20 09:00 06/10/20 11:13 Chloride IVPB 50.6 mls DAILY GINNY Administration Zinc Sulfate 220 mg 06/10/20 09:00 06/10/20 09:31 Zinc Sulfate 220 Mg Cap PO 220 mg DAILY GINNY Administration Hospitalist Exam Vitals: Vital Signs (12 hours) Temp Pulse Resp BP BP Pulse Ox 06/10/20 11:15 98.4 F 84 24 H 117/73 98 06/10/20 09:45 98 06/10/20 08:00 98.9 F 73 20 115/72 93 L 06/10/20 07:49 98.0 F 70 20 99/68 94 L 06/10/20 05:21 97.9 F 69 20 104/69 94 L Weight Weight 239 lb General Appearance: NAD Eye: PERRL ENT: normocephalic atraumatic Neck: supple Respiratory: tachypneic Gastrointestinal: soft, non-tender, non-distended Extremities: no cyanosis, no clubbing Neurological: cranial nerve grossly intact Hosp A/P - Plan 1. Acute hypoxic respiratory failure secondary to Covid pneumonia -On dexamethasone, vitamin C, D -Sats currently at 95% on 2 L 2. Morbid obesity 3. History of essential hypertension -SBP currently low in the 90s to low 100s so holding outpatient BP meds 4. DVT prophylaxis -Subcu Lovenox
[2020-06-10] MEDS: Guaifenesin DM 100-10/5 ML UDCUP PO PRN (20:19)
[2020-06-11] MEDS: Ascorbic Acid 500 mg Chewable Tablet PO SCH (09:44)
[2020-06-11] MEDS: Cholecalciferol (Vitamin D3) 400 UNITS TAB PO SCH (09:45)
[2020-06-11] MEDS: guaiFENesin/Codeine 200 mg/20 mg 10 ml Cup PO PRN (09:45)
[2020-06-11] MEDS: Enoxaparin Sodium 40 MG/0.4 ML SYRINGE SC SCH (09:45)
[2020-06-11] MEDS: Zinc Sulfate 220 MG CAP PO SCH (09:45)
[2020-06-11] MEDS: Dexamethasone 6 MG in Sodium Chloride 0.9% 50 ML IVPB SCH (09:45)
--- NOTE | 2020-06-11 11:53 | PDOC.HOSPP ---
- Subjective Encounter Date: 06/11/20 Encounter Time: 11:52 Subjective: Complaints of generalized weakness - Objective Vital Signs & Weight: Vital Signs (12 hours) Temp Pulse Resp BP BP Pulse Ox 06/11/20 07:59 98.0 F 69 18 110/61 97 06/11/20 05:07 97.9 F 68 18 93/62 92 L 06/11/20 00:36 98.1 F 69 18 107/63 95 Weight Weight 239 lb I&O: 06/10/20 06/11/20 06/12/20 06:59 06:59 06:59 Intake Total 700 1450 Balance 700 1450 Result Diagrams: 06/10/20 06:33 06/10/20 06:33 Hospitalist ROS - Review of Systems Constitutional: reports: fever. denies: chills, sweats, weakness, malaise, other ENT: denies: ear pain, ear discharge, nose pain, nose discharge, nose congestion, mouth pain, mouth swelling, throat pain, throat swelling, other Respiratory: reports: shortness of breath Cardiovascular: denies: chest pain, palpitations, orthopnea, paroxysmal noc. dyspnea, edema, light headedness, other Gastrointestinal: denies: nausea, vomiting, abdominal pain, diarrhea, constipation, melena, hematochezia, other Musculoskeletal: denies: neck pain, shoulder pain, arm pain, back pain, hand pain, leg pain, foot pain, other Skin: denies: rash, lesions, consuelo, bruising, other - Medication Medications: Active Medications Generic Name Dose Route Start Last Admin Trade Name Freq PRN Reason Stop Dose Admin Acetaminophen 650 mg 06/09/20 14:14 06/10/20 20:19 Acetaminophen 325 Mg Tab PO 650 mg Q4H PRN Administration Headache/Fever/Mild Pain (1-3) Ascorbic Acid 1,000 mg 06/10/20 09:00 06/11/20 09:44 Ascorbic Acid 500 Mg Chewable Tablet PO 1,000 mg DAILY GINNY Administration Cholecalciferol 400 units 06/10/20 09:00 06/11/20 09:45 Cholecalciferol (Vitamin D3) 400 Units Tab PO 400 units DAILY GINNY Administration Enoxaparin Sodium 40 mg 06/10/20 09:00 06/11/20 09:45 Enoxaparin Sodium 40 Mg/0.4 Ml Syringe SC 40 mg 0900 GINNY Administration Guaifenesin/Codeine Phosphate 10 ml 06/10/20 10:34 06/11/20 09:45 Guaifenesin/Codeine 200 Mg/20 Mg 10 Ml Cup PO 10 ml Q6H PRN Administration Cough Guaifenesin/Dextromethorphan 15 ml 06/09/20 14:14 06/10/20 20:19 Guaifenesin Dm 100-10/5 Ml Udcup PO 15 ml Q4H PRN Administration Cough Dexamethasone 6 mg/ Sodium 50.6 mls @ 100 mls/hr 06/10/20 09:00 06/11/20 09:45 Chloride IVPB 50.6 mls DAILY GINNY Administration Zinc Sulfate 220 mg 06/10/20 09:00 06/11/20 09:45 Zinc Sulfate 220 Mg Cap PO 220 mg DAILY GINNY Administration Hospitalist Exam Vitals: Vital Signs (12 hours) Temp Pulse Resp BP BP Pulse Ox 06/11/20 07:59 98.0 F 69 18 110/61 97 06/11/20 05:07 97.9 F 68 18 93/62 92 L 06/11/20 00:36 98.1 F 69 18 107/63 95 Weight Weight 239 lb General Appearance: NAD, awake alert ENT: normocephalic atraumatic, no oropharyngeal lesions Heart: RRR, no murmur, no gallops Respiratory: rales Gastrointestinal: soft, non-tender, non-distended Extremities: no cyanosis, no clubbing, no edema Skin: normal turgor Hosp A/P - Plan 1. Acute hypoxic respiratory failure secondary to Covid pneumonia -On dexamethasone, vitamin C, D -Sats currently at 95% on 2 L 2. Morbid obesity 3. History of essential hypertension -SBP currently low in the 90s to low 100s so holding outpatient BP meds 4. DVT prophylaxis -Subcu Lovenox #5 Deconditioned status -PT/OT eval
[2020-06-11] MEDS: Guaifenesin DM 100-10/5 ML UDCUP PO PRN (21:01)
[2020-06-12] MEDS: Dexamethasone 6 MG in Sodium Chloride 0.9% 50 ML IVPB SCH (07:58)
[2020-06-12] MEDS: Ascorbic Acid 500 mg Chewable Tablet PO SCH (07:58)
[2020-06-12] MEDS: Zinc Sulfate 220 MG CAP PO SCH (07:59)
[2020-06-12] MEDS: Enoxaparin Sodium 40 MG/0.4 ML SYRINGE SC SCH (07:59)
[2020-06-12] MEDS: Cholecalciferol (Vitamin D3) 400 UNITS TAB PO SCH (07:59)
--- NOTE | 2020-06-12 13:41 | PDOC.HOSPP ---
- Subjective Encounter Date: 06/12/20 Encounter Time: 13:39 Subjective: Feeling better, less short of breath - Objective Vital Signs & Weight: Vital Signs (12 hours) Temp Pulse Resp BP BP Pulse Ox 06/12/20 11:48 99.3 F 70 18 101/60 91 L 06/12/20 08:00 92 L 06/12/20 07:28 100 F H 79 18 99/60 92 L 06/12/20 06:05 98.4 F 74 18 103/69 92 L Weight Weight 239 lb I&O: 06/11/20 06/12/20 06/13/20 06:59 06:59 06:59 Intake Total 1450 120 Balance 1450 120 Result Diagrams: 06/10/20 06:33 06/10/20 06:33 Hospitalist ROS - Review of Systems Constitutional: reports: weakness, malaise Eyes: denies: pain, vision change, conjunctivae inflammation, eyelid inflammation, redness, other ENT: denies: ear pain, ear discharge, nose pain, nose discharge, nose congestion, mouth pain, mouth swelling, throat pain, throat swelling, other Respiratory: reports: SOB with excertion Cardiovascular: denies: chest pain, palpitations, orthopnea, paroxysmal noc. dyspnea, edema, light headedness, other Gastrointestinal: denies: nausea, vomiting, abdominal pain, diarrhea, constipation, melena, hematochezia, other Genitourinary: denies: dysuria, frequency, incontinence, hematuria, retention, other Musculoskeletal: denies: neck pain, shoulder pain, arm pain, back pain, hand pain, leg pain, foot pain, other Skin: denies: rash, lesions, consuelo, bruising, other - Medication Medications: Active Medications Generic Name Dose Route Start Last Admin Trade Name Freq PRN Reason Stop Dose Admin Acetaminophen 650 mg 06/09/20 14:14 06/10/20 20:19 Acetaminophen 325 Mg Tab PO 650 mg Q4H PRN Administration Headache/Fever/Mild Pain (1-3) Ascorbic Acid 1,000 mg 06/10/20 09:00 06/12/20 07:58 Ascorbic Acid 500 Mg Chewable Tablet PO 1,000 mg DAILY GINNY Administration Cholecalciferol 400 units 06/10/20 09:00 06/12/20 07:59 Cholecalciferol (Vitamin D3) 400 Units Tab PO 400 units DAILY GINNY Administration Enoxaparin Sodium 40 mg 06/10/20 09:00 06/12/20 07:59 Enoxaparin Sodium 40 Mg/0.4 Ml Syringe SC 40 mg 0900 GINNY Administration Guaifenesin/Codeine Phosphate 10 ml 06/10/20 10:34 06/11/20 09:45 Guaifenesin/Codeine 200 Mg/20 Mg 10 Ml Cup PO 10 ml Q6H PRN Administration Cough Guaifenesin/Dextromethorphan 15 ml 06/09/20 14:14 06/11/20 21:01 Guaifenesin Dm 100-10/5 Ml Udcup PO 15 ml Q4H PRN Administration Cough Dexamethasone 6 mg/ Sodium 50.6 mls @ 100 mls/hr 06/10/20 09:00 06/12/20 07:58 Chloride IVPB 50.6 mls DAILY GINNY Administration Zinc Sulfate 220 mg 06/10/20 09:00 06/12/20 07:59 Zinc Sulfate 220 Mg Cap PO 220 mg DAILY GINNY Administration Hospitalist Exam Vitals: Vital Signs (12 hours) Temp Pulse Resp BP BP Pulse Ox 06/12/20 11:48 99.3 F 70 18 101/60 91 L 06/12/20 08:00 92 L 06/12/20 07:28 100 F H 79 18 99/60 92 L 06/12/20 06:05 98.4 F 74 18 103/69 92 L Weight Weight 239 lb General Appearance: NAD, awake alert Eye: PERRL ENT: normocephalic atraumatic, no oropharyngeal lesions Neck: supple Heart: RRR, no murmur, no gallops Respiratory: no wheezes Gastrointestinal: soft, non-tender, non-distended Extremities: no cyanosis, no clubbing Skin: normal turgor Musculoskeletal: normal tone, normal strength Psychiatric: normal affect, normal behavior Hosp A/P - Plan 1. Acute hypoxic respiratory failure secondary to Covid pneumonia -On dexamethasone, vitamin C, D -Sats currently at 97% on 2 L 2. Morbid obesity 3. History of essential hypertension -SBP currently low in the 90s to low 100s so holding outpatient BP meds 4. DVT prophylaxis -Subcu Lovenox #5 Deconditioned status -PT/OT eval Plan to discharge in 24 to 48 hours with home oxygen arranged
[2020-06-13] MEDS: Ascorbic Acid 500 mg Chewable Tablet PO SCH (07:49)
[2020-06-13] MEDS: Zinc Sulfate 220 MG CAP PO SCH (07:49)
[2020-06-13] MEDS: Cholecalciferol (Vitamin D3) 400 UNITS TAB PO SCH (07:49)
[2020-06-13] MEDS: Enoxaparin Sodium 40 MG/0.4 ML SYRINGE SC SCH (07:49)
[2020-06-13] MEDS: Dexamethasone 6 MG in Sodium Chloride 0.9% 50 ML IVPB SCH (08:39)
[2020-06-13 12:08] LABS: #Monocytes 0.2 thou/uL (0.11-0.59); #Neutrophils 6.1 thou/uL (1.40-6.50); %Basophils 0.2 % (0.0-1.0); %Eosinophils 0.2 % (0.0-10.0); %Lymphocytes 13.3 % (21.0-51.0); %Monocytes 3.3 % (0.0-10.0); Hemoglobin 13.4 g/dL (12.0-16.0); Mean Corpuscular HGB CONC 32.9 g/dL (32.0-36.0); Mean Corpuscular Hemoglobin 28.6 pg (27.0-31.0); Mean Platelet Volume 6.9 fL (7.4-10.4); Platelet Count 275 thou/uL (130-400); RBC Distribution Width 12.4 % (11.5-14.5); Red Blood Cell (RBC) Count 4.68 mill/uL (4.20-5.40); White Blood Cell (WBC) Count 7.3 thou/uL (4.8-10.8)
[2020-06-13 12:27] LABS: Anion Gap 15 mmol/L (10-20); BUN (Urea Nitrogen) 21 mg/dL (9.8-20.1); Calc. Creatinine Clearance 150 mL/min (70-130); Calcium 8.6 mg/dL (7.8-10.44); Carbon Dioxide 25 mmol/L (23-31); Chloride 107 mmol/L (98-107); Glucose 141 mg/dL (80-115); Potassium 3.8 mmol/L (3.5-5.1); Sodium 143 mmol/L (136-145)
--- NOTE | 2020-06-13 13:45 | PDOC.HOSPP ---
- Subjective Encounter Date: 06/13/20 Encounter Time: 13:43 Subjective: Extremely anxious, complaining of severe generalized weakness. Said that she lives alone and cannot go home because there is no one to take care of her at home - Objective Vital Signs & Weight: Vital Signs (12 hours) Temp Pulse Resp BP BP Pulse Ox 06/13/20 08:00 96 06/13/20 07:56 98.1 F 73 16 95/53 L 96 06/13/20 05:56 98.1 F 68 18 103/71 97 Weight Weight 239 lb I&O: 06/12/20 06/13/20 06/14/20 06:59 06:59 06:59 Intake Total 120 480 Balance 120 480 Result Diagrams: 06/13/20 11:49 06/13/20 11:49 Hospitalist ROS - Review of Systems Constitutional: reports: weakness, malaise Eyes: denies: pain, vision change, conjunctivae inflammation, eyelid inflammation, redness, other ENT: denies: ear pain, ear discharge, nose pain, nose discharge, nose congestion, mouth pain, mouth swelling, throat pain, throat swelling, other Respiratory: reports: SOB with excertion Cardiovascular: denies: chest pain, palpitations, orthopnea, paroxysmal noc. dyspnea, edema, light headedness, other Gastrointestinal: denies: nausea, vomiting, abdominal pain, diarrhea, constipation, melena, hematochezia, other Genitourinary: denies: dysuria, frequency, incontinence, hematuria, retention, other Musculoskeletal: denies: neck pain, shoulder pain, arm pain, back pain, hand pain, leg pain, foot pain, other Skin: denies: rash, lesions, consuelo, bruising, other Neurological: denies: weakness, numbness, incoordination, change in speech, confusion, seizures, other - Medication Medications: Active Medications Generic Name Dose Route Start Last Admin Trade Name Freq PRN Reason Stop Dose Admin Acetaminophen 650 mg 06/09/20 14:14 06/10/20 20:19 Acetaminophen 325 Mg Tab PO 650 mg Q4H PRN Administration Headache/Fever/Mild Pain (1-3) Ascorbic Acid 1,000 mg 06/10/20 09:00 06/13/20 07:49 Ascorbic Acid 500 Mg Chewable Tablet PO 1,000 mg DAILY GINNY Administration Cholecalciferol 400 units 06/10/20 09:00 06/13/20 07:49 Cholecalciferol (Vitamin D3) 400 Units Tab PO 400 units DAILY GINNY Administration Enoxaparin Sodium 40 mg 06/10/20 09:00 06/13/20 07:49 Enoxaparin Sodium 40 Mg/0.4 Ml Syringe SC 40 mg 0900 GINNY Administration Guaifenesin/Codeine Phosphate 10 ml 06/10/20 10:34 06/11/20 09:45 Guaifenesin/Codeine 200 Mg/20 Mg 10 Ml Cup PO 10 ml Q6H PRN Administration Cough Guaifenesin/Dextromethorphan 15 ml 06/09/20 14:14 06/11/20 21:01 Guaifenesin Dm 100-10/5 Ml Udcup PO 15 ml Q4H PRN Administration Cough Dexamethasone 6 mg/ Sodium 50.6 mls @ 100 mls/hr 06/10/20 09:00 06/13/20 08: 39 Chloride IVPB 50.6 mls DAILY GINNY Administration Zinc Sulfate 220 mg 06/10/20 09:00 06/13/20 07:49 Zinc Sulfate 220 Mg Cap PO 220 mg DAILY GINNY Administration Hospitalist Exam Vitals: Vital Signs (12 hours) Temp Pulse Resp BP BP Pulse Ox 06/13/20 08:00 96 06/13/20 07:56 98.1 F 73 16 95/53 L 96 06/13/20 05:56 98.1 F 68 18 103/71 97 Weight Weight 239 lb General Appearance: NAD, awake alert Eye: PERRL, anicteric sclera ENT: normocephalic atraumatic, no oropharyngeal lesions Neck: supple Heart: RRR, no murmur, no gallops Respiratory: no rales, no ronchi Gastrointestinal: soft, non-tender, non-distended, normal bowel sounds Extremities: no cyanosis, no clubbing, no edema Neurological: cranial nerve grossly intact Musculoskeletal: generalized weakness Psychiatric: A&O x 3, lethargic Hosp A/P - Plan 1. Acute hypoxic respiratory failure secondary to Covid pneumonia -On dexamethasone, vitamin C, D -Sats currently at 97% on 2 L 2. Morbid obesity 3. History of essential hypertension -SBP currently low in the 90s to low 100s so holding outpatient BP meds 4. DVT prophylaxis -Subcu Lovenox #5 Deconditioned status -PT/OT eval Patient very anxious and tearful, stated that she is extremely weak and cannot care for herself at home by herself. Reviewed PT notes which recommended home health versus IPR. Will consult classification case manager for IPR placement
[2020-06-14] MEDS: Enoxaparin Sodium 40 MG/0.4 ML SYRINGE SC SCH ×2 (08:08→21:40)
[2020-06-14] MEDS: Ascorbic Acid 500 mg Chewable Tablet PO SCH (08:08)
[2020-06-14] MEDS: Zinc Sulfate 220 MG CAP PO SCH (08:08)
[2020-06-14] MEDS: Cholecalciferol (Vitamin D3) 400 UNITS TAB PO SCH (08:08)
--- NOTE | 2020-06-14 08:55 | PQF ---
CLINICAL DOCUMENTATION CLARIFICATION FORM: Dear Dr. Ortega / Dr. De La Rosa Date: 06/14/2020 / 06/15/2020 Please exercise your independent, professional judgment in responding to the clarification form. Clinical indicators are provided on the bottom of this form for your review. Please check appropriate box(s): [ ] Acute Hypoxic Respiratory Failure without Chronic Respiratory Failure [ x ] Acute on Chronic Hypoxic Respiratory Failure [ ] Other diagnosis [ ] Unable to determine In addition, please specify: Present on Admission (POA): [ x ] Yes [ ] No [ ] Unable to determine For continuity of documentation, please document condition throughout progress notes and discharge summary. Thank You. CLINICAL INDICATORS - SIGNS / SYMPTOMS / LABS / RESULTS AND LOCATION IN EMR *ED 06/09: * Vital Signs: RR 24-30 Pulse 83-93 O2 Sat 93% on Room Air to 95-100% on 2L Oxygen * Complaints of shortness of breath and extreme fatigue. * Oxygen saturation was 86% on room air for EMS. She did improve to 90% on 3 L per NC. *H&P 06/09 (Tanner): * Uses O2 at home 2L, patient does not know why she is on home O2, denies any heart or lung disease, she is morbidly obese, could be related to obesity hypoventilation syndrome * Respiratory failure with hypoxia *PN 06/10 (Shannon): * Acute hypoxic respiratory failure secondary to Covid pneumonia. * Sats currently at 95% on 2 L. *PN 06/13 (Shannon): Sats currently at 97% on 2L RISK FACTORS / RESULTS AND LOCATION IN EMR *ED 06/09: COVID-19 Pneumonia *H&P 06/09 (Tanner): Uses O2 at home 2L, patient does not know why she is on home O2, denies any heart or lung disease, she is morbidly obese, could be related to obesity hypoventilation syndrome TREATMENTS / RESULTS AND LOCATION IN EMR *ED 06/09: Oxygen, Albuterol Inhaler, Dexamethasone IV *H&P 06/09 (Tanner): Will start decadron ivd O2 supplementation Wean as tolerated Thank you, Ruth CDS/Emergency Vehicle Dispatcher Signature: Ruth Bill RN, CDS Phone #: [phone] This is a permanent part of the Medical Record [facility]
[2020-06-14] MEDS: Dexamethasone 6 MG in Sodium Chloride 0.9% 50 ML IVPB SCH (09:21)
[2020-06-14] MEDS ORDERED: Dexamethasone 4 mg/ml Vial SLOW IVP SCH (16:30)
--- NOTE | 2020-06-14 16:31 | PDOC.HOSPP ---
- Subjective Encounter Date: 06/14/20 Encounter Time: 12:30 Subjective: Patient seen and examined for respiratory failure due to COVID-19 pneumonia. Shortness of breath improving. Mild dry cough. - Objective Vital Signs & Weight: Vital Signs (12 hours) Temp Pulse Resp BP Pulse Ox 06/14/20 12:01 98.0 F 71 20 114/80 100 06/14/20 08:55 96 06/14/20 08:00 97.9 F 76 20 100/72 96 Weight Weight 239 lb I&O: 06/13/20 06/14/20 06/15/20 06:59 06:59 06:59 Intake Total 480 530 Balance 480 530 Result Diagrams: 06/13/20 11:49 06/13/20 11:49 Additional Labs: Abnormal Lab Results - Last 48 hrs 06/13/20 11:49: BUN 21 H 06/13/20 11:49: MPV 6.9 L, Neutrophils % 83.0 H, Lymphocytes % 13.3 L, Lymphocytes # 1.0 L Microbiology - Entire Visit 06/09/20 11:35 Venous blood - Right Arm Blood Culture - Preliminary NO GROWTH AT 48 HOURS 06/09/20 11:42 Venous blood - Left Hand Blood Culture - Preliminary NO GROWTH AT 48 HOURS 06/09/20 11:45 Nasal swab Influenza Types A,B Direct EIA - Final Radiology Reviewed by me: Yes (CTAbilateral pneumonia) Hospitalist ROS - Review of Systems Cardiovascular: denies: chest pain, palpitations, orthopnea, paroxysmal noc. dyspnea, edema, light headedness, other Gastrointestinal: denies: nausea, vomiting, abdominal pain, diarrhea, constipation, melena, hematochezia, other - Medication Medications: Active Medications Generic Name Dose Route Start Last Admin Trade Name Freq PRN Reason Stop Dose Admin Acetaminophen 650 mg 06/09/20 14:14 06/10/20 20:19 Acetaminophen 325 Mg Tab PO 650 mg Q4H PRN Administration Headache/Fever/Mild Pain (1-3) Ascorbic Acid 1,000 mg 06/10/20 09:00 06/14/20 08:08 Ascorbic Acid 500 Mg Chewable Tablet PO 1,000 mg DAILY GINNY Administration Cholecalciferol 400 units 06/10/20 09:00 06/14/20 08:08 Cholecalciferol (Vitamin D3) 400 Units Tab PO 400 units DAILY GINNY Administration Guaifenesin/Dextromethorphan 15 ml 06/09/20 14:14 06/11/20 21:01 Guaifenesin Dm 100-10/5 Ml Udcup PO 15 ml Q4H PRN Administration Cough Zinc Sulfate 220 mg 06/10/20 09:00 06/14/20 08:08 Zinc Sulfate 220 Mg Cap PO 220 mg DAILY GINNY Administration Hospitalist Exam Vitals: Vital Signs (12 hours) Temp Pulse Resp BP Pulse Ox 06/14/20 12:01 98.0 F 71 20 114/80 100 06/14/20 08:55 96 06/14/20 08:00 97.9 F 76 20 100/72 96 Weight Weight 239 lb General Appearance: awake alert Neck: supple, no JVD Heart: RRR, no gallops, no rubs, normal peripheral pulses Respiratory: no wheezes, normal chest expansion, rales, rhonchi Gastrointestinal: soft, normal bowel sounds, no guarding, no rigidity Extremities: no cyanosis, no clubbing, no edema Neurological: no new deficit Musculoskeletal: generalized weakness Psychiatric: A&O x 3 Hosp A/P - Plan Patient is a 64-year-old female with morbid obesity, chronic respiratory failure on home oxygen and obesity hypoventilation presented to the hospital on 06/09 with generalized weakness along with fever and shortness of breath. Her temperature by EMS was 102 F along with O2 saturation of 86% on room air. Her O2 saturation improved to 90% on 3 L. Please refer to the history and physical for further details. The patient was admitted to the hospital with a diagnosis of acute on chronic hypoxic respiratory failure due to COVID-19 pneumonia. Procalcitonin was negative. She showed good improvement with O2 supplementation with steroids. She has remained stable on 3 L oxygen nasal cannula. Due to progressive weakness she will be discharged to custodial facility. Patient has remained afebrile over the past 48 hours. Impression: Severe sepsis/acute on chronic hypoxic respiratory failure due to COVID-19 pneumoniaPOA Morbid obesity with a BMI 51.7 Hyperlipidemia Hypertension CKD stage II Plan: Continue O2 supplementation. Continue dexamethasone 6 mg daily. Will increase Lovenox to 40 mg twice daily. Add PPI for GI prophylaxis. Add Mucinex. Check CRP and chest x-ray today. DC to custodial facility when accepted. Her O2 saturation has remained stable. Continue other medications as above
[2020-06-14] MEDS ORDERED: Albuterol 200 PUFF (6.7GM INHALER) INH PRN (16:45)
--- NOTE | 2020-06-14 17:24 | RAD ---
PORTABLE CHEST: History: Shortness of breath. Comparison: 06-09-2020 FINDINGS: Bilateral lung infiltrates are stable. Heart size is enlarged. IMPRESSION: Stable exam. POS: LISA
[2020-06-14] MEDS: Albuterol 200 PUFF (6.7GM INHALER) INH SCH ×2 (17:29→22:42)
[2020-06-14] MEDS: guaiFENesin ER 600 MG TAB PO SCH (21:43)
[2020-06-14] MEDS: Doxycycline 100 MG CAP PO SCH (21:43)
[2020-06-15] MEDS: Albuterol 200 PUFF (6.7GM INHALER) INH SCH ×4 (02:34→13:57)
[2020-06-15] MEDS: Enoxaparin Sodium 40 MG/0.4 ML SYRINGE SC SCH (08:04)
[2020-06-15] MEDS: Cholecalciferol (Vitamin D3) 400 UNITS TAB PO SCH (08:04)
[2020-06-15] MEDS: Doxycycline 100 MG CAP PO SCH (08:04)
[2020-06-15] MEDS: guaiFENesin ER 600 MG TAB PO SCH (08:04)
[2020-06-15] MEDS: Zinc Sulfate 220 MG CAP PO SCH (08:04)
[2020-06-15] MEDS: Ascorbic Acid 500 mg Chewable Tablet PO SCH (08:04)
[2020-06-15] MEDS ORDERED: Dexamethasone 4 mg/ml Vial SLOW IVP SCH (09:00)
[2020-06-15] MEDS ORDERED: Multivit, Therapeutic 1 TAB PO SCH (09:00)
[2020-06-15 12:16] VITALS: BP 108/78; TEMP 98.2
--- NOTE | 2020-06-15 17:34 | PDOC.DS.DS ---
Provider Date of Admission: 06/09/20 13:45 Date of Discharge: 06/15/20 Admitting Provider: Zheng Hart Primary Care Physician: Cesia Mitchell MD Course Hospital Course: Patient is a 64-year-old female with morbid obesity, chronic respiratory failure on home oxygen and obesity hypoventilation presented to the hospital on 06/09 with generalized weakness along with fever and shortness of breath. Her temperature by EMS was 102 F along with O2 saturation of 86% on room air. Her O2 saturation improved to 90% on 3 L. Please refer to the history and physical for further details. The patient was admitted to the hospital with a diagnosis of acute on chronic hypoxic respiratory failure due to COVID-19 pneumonia. Procalcitonin was negative. She showed good improvement with O2 supplementation with steroids. S he has remained stable on 3 L oxygen nasal cannula. Due to progressive weakness she will be discharged to [facility] facility. Patient has remained afebrile over the past 48 hours. Final diagnosis: Severe sepsis/acute on chronic hypoxic respiratory failure due to COVID-19 pneumonia Morbid obesity with a BMI 51.7 Hyperlipidemia Hypertension CKD stage II Resuscitation Status: 06/09/20 14:14 Resuscitation Status Routine Resuscitation Status: FULL: Full Resuscitation Lab Results: 06/13/20 11:49 06/13/20 11:49 Abnormal Lab Results - Last 48 hrs 06/14/20 16:38: C-Reactive Protein 1.43 H Microbiology - Entire Visit 06/09/20 11:35 Venous blood - Right Arm Blood Culture - Final NO GROWTH IN 5 DAYS 06/09/20 11:42 Venous blood - Left Hand Blood Culture - Final NO GROWTH IN 5 DAYS 06/09/20 11:45 Nasal swab Influenza Types A,B Direct EIA - Final Vitals: Vital Signs (12 hours) Temp Pulse Pulse Pulse Resp BP Pulse Ox 06/15/20 12:00 98.2 F 72 20 108/78 95 06/15/20 11:00 91 86 06/15/20 07:53 97.8 F 70 20 106/77 96 06/15/20 06:15 98.4 F 56 L 95 Pulse Ox Pulse Ox 06/15/20 12:00 06/15/20 11:00 95 94 L 06/15/20 07:53 06/15/20 06:15 Weight Weight 239 lb Physical Exam: The patient was evaluated on the day of discharge. Problem Time Spent in discharge related activities (mins): 34 Plan Prescriptions: Dexamethasone 6 mg PO ASDIR #7 tablet Albuterol Sulfate HFA (OR) [Proventil Hfa (or)] 2 puff INH Q4H #1 inh Home Medications: Medication Instructions Recorded Confirmed Type Atorvastatin Calcium [Lipitor] 20 mg PO DAILY 06/09/20 06/15/20 History Ergocalciferol (Vitamin D2) 50,000 unit PO ASDIR 06/09/20 06/15/20 History [Vitamin D2] Fluticasone/Vilanterol [Breo 1 each IH DAILY 06/09/20 06/15/20 History Ellipta 200-25 Mcg INH] Ondansetron [Ondansetron ODT] 4 mg PO Q6HR PRN 06/09/20 06/15/20 History Albuterol Sulfate HFA (OR) 2 puff INH Q4H #1 inh 06/14/20 06/15/20 Rx [Proventil Hfa (or)] Ascorbic Acid [Vitamin C] 1,000 mg PO DAILY #0 tab 06/14/20 06/15/20 Rx Cholecalciferol (Vitamin D3) 400 units PO DAILY tab 06/14/20 06/15/20 Rx [Vitamin D3] Dexamethasone 6 mg PO ASDIR #7 tablet 06/14/20 06/15/20 Rx Doxycycline [Vibramycin] 100 mg PO BID cap 06/14/20 06/15/20 Rx Enoxaparin Sodium [Lovenox] 40 mg SC 0900,2100 syringe 06/14/20 06/15/20 Rx Multivit, Therapeutic [Theragran] 1 tab PO DAILY tab 06/14/20 06/15/20 Rx Pantoprazole [Protonix] 40 mg PO DAILY tab 06/14/20 06/15/20 Rx Zinc Sulfate 220 mg PO DAILY cap 06/14/20 06/15/20 Rx guaiFENesin ER [Mucinex] 600 mg PO Q12HR tab 06/14/20 06/15/20 Rx Allergies: No Known Allergies Allergy (Verified 06/09/20 18:13) Referrals: [facility] [Outside] Lamont Aguillon MD [Active] - 10 Days Cesia Mitchell MD [Primary Care Provider] - 7 Days Disposition: SWINGBED FACILITY Quality CORE MEASURES:: N/A
== END 2020-06-15 14:30 | disposition swing bed (61) | DRG 871 ==
LOC: ERS 11:07 → T4-A 13:45
PROVIDERS: ADMIT Internal Medicine; ATTEND Internal Medicine
PROC: 8E0ZXY6 Isolation (ICD-10-PCS; principal; 2020-06-09)
DX: A41.89 Other specified sepsis (principal); U07.1 COVID-19; J12.82 Pneumonia due to coronavirus disease 2019; J96.21 Acute and chronic respiratory failure with hypoxia; E66.2 Morbid (severe) obesity with alveolar hypoventilation; Z68.43 Body mass index [BMI] 50.0-59.9, adult; R65.20 Severe sepsis without septic shock; E78.5 Hyperlipidemia, unspecified; E78.00 Pure hypercholesterolemia, unspecified; N18.2 Chronic kidney disease, stage 2 (mild); I12.9 Hypertensive chronic kidney disease with stage 1 through stage 4 chronic kidney disease, or unspecified chronic kidney disease; Z98.51 Tubal ligation status; Z99.81 Dependence on supplemental oxygen; Z79.899 Other long term (current) drug therapy; Z79.52 Long term (current) use of systemic steroids; Z79.51 Long term (current) use of inhaled steroids
CPT/HCPCS: 36415; 71045; 71275; 80048; 80053; 81003; 81015; 82728; 83605; 83615; 83880; 84145; 84484; 85007; 85025; 85027; 85379; 85610; 85730; 86140; 87040; 87635; 87804; 93005; 96365; 96367; 96374; 96375; J0456; J0696; J1100; J1650; J1885; J2405; Q9967; U0003; U0005

== ENCOUNTER 2021-05-17 12:16 | Outpatient (CLI) | payer MEDICAID | END 2021-05-17 12:17 | disposition home or self-care (01) | LOC: BICMAMMO 12:16 | PROVIDERS: ATTEND Family Medicine | DX: Z12.31 Encounter for screening mammogram for malignant neoplasm of breast (principal) | CPT/HCPCS: 77063; 77067 ==

== ENCOUNTER 2022-05-25 10:27 | Outpatient (CLI) | payer OTHER, MEDICAID | END 2022-05-25 10:28 | disposition home or self-care (01) | LOC: BICMAMMO 10:27 | PROVIDERS: ATTEND Family Medicine | DX: Z12.31 Encounter for screening mammogram for malignant neoplasm of breast (principal) | CPT/HCPCS: 77063; 77067 ==

== ENCOUNTER 2022-07-04 13:54 | Outpatient (CLI) | payer OTHER, MEDICAID | END 2022-07-04 13:55 | disposition home or self-care (01) | LOC: BICRAD 13:54 | PROVIDERS: ATTEND Family Medicine | DX: R93.89 Abnormal findings on diagnostic imaging of other specified body structures (principal) | CPT/HCPCS: 71046 ==

== ENCOUNTER 2022-12-20 00:01 | Emergency (ER) | payer OTHER, MEDICAID ==
[2022-12-20] MEDS ORDERED: Ketorolac Tromethamine 30 MG/ML VIAL ONE (00:50)
[2022-12-20] MEDS ORDERED: Dexameth. Sod Phosp. 10 MG/ML (CHEMO USE ONLY) ONE (00:59)
[2022-12-20] MEDS ORDERED: Dexamethasone 4 mg/ml Vial ONE (00:59)
[2022-12-20 01:00] LABS: #Eosinphils 0.1 thou/uL (0.0-0.7); #Monocytes 0.8 thou/uL (0.11-0.59); #Neutrophils 5.2 thou/uL (1.40-6.50); %Basophils 0.2 % (0.0-1.0); %Eosinophils 1.4 % (0.0-10.0); %Lymphocytes 28.2 % (21.0-51.0); %Monocytes 8.8 % (0.0-10.0); Hematocrit 39.2 % (36.0-47.0); Hemoglobin 13.2 g/dL (12.0-16.0); Mean Corpuscular HGB CONC 33.7 g/dL (32.0-36.0); Mean Corpuscular Hemoglobin 29.3 pg (27.0-31.0); Mean Corpuscular Volume 87.1 fl (78.0-98.0); Mean Platelet Volume 8.9 fL (7.4-10.4); Platelet Count 224 10x3/uL (130-400); RBC Distribution Width 13.2 % (11.5-14.5); White Blood Cell (WBC) Count 8.5 10x3/uL (4.8-10.8)
[2022-12-20 01:25] LABS: ALT (SGPT) 20 U/L (8-55); AST (SGOT) 19 U/L (5-34); Alkaline Phosphatase 93 U/L (40-110); Anion Gap 12 mmol/L (10-20); BUN (Urea Nitrogen) 17 mg/dL (9.8-20.1); Bilirubin, Total 0.5 mg/dL (0.2-1.2); Calc. Creatinine Clearance 0 mL/min (70-130); Calcium 9.4 mg/dL (7.8-10.44); Carbon Dioxide 29 mmol/L (23-31); Chloride 103 mmol/L (98-107); Estimated GFR 85; Glucose 111 mg/dL (80-115); Potassium 3.6 mmol/L (3.5-5.1); Sodium 140 mmol/L (136-145)
== END 2022-12-20 01:44 | disposition home or self-care (01) ==
LOC: ERS 00:01
DX: J44.1 Chronic obstructive pulmonary disease with (acute) exacerbation (principal); E78.00 Pure hypercholesterolemia, unspecified; I10 Essential (primary) hypertension
CPT/HCPCS: 71045; 80053; 84484; 85025; 93005; 94640; 96374; J1100; J1885; J7611

== ENCOUNTER 2023-03-06 10:55 | Emergency (ER) | payer OTHER ==
[2023-03-06] MEDS ORDERED: Ketorolac Tromethamine 30 MG/ML VIAL ONE (12:06)
== END 2023-03-06 12:20 | disposition home or self-care (01) ==
LOC: ERS 10:55
DX: M17.12 Unilateral primary osteoarthritis, left knee (principal); I10 Essential (primary) hypertension
CPT/HCPCS: 96372; 99283; J1885

== ENCOUNTER 2023-03-12 16:01 | Outpatient (CLI) | payer OTHER | END 2023-03-12 16:02 | disposition home or self-care (01) | LOC: BICRAD 16:01 | PROVIDERS: ATTEND Family Medicine | DX: M25.511 Pain in right shoulder (principal); M19.011 Primary osteoarthritis, right shoulder ==